=== PATIENT | female | born 1945 | race Caucasian/White ===

== ENCOUNTER → 2021-02-20 11:57 | Outpatient (CLI) | payer OTHER, SELFPAY ==
--- NOTE | ~2021-02-20 | CT_ITS ---
EXAMINATION:CT lung screening DATE: 02/20/2021 12:16 INDICATION: Personal history of tobacco dependence. Smoker who quit 15 years ago with 40 pack year hi story. TECHNIQUE: Computed tomography (CT) of the chest was performed without intravenous contrast. Automate d exposure control and iterative reconstruction technique were employed. The dose-length product (DLP ) was 83.85 mGy-cm. COMPARISON: None. FINDINGS: There is mild scarring at the lung apices. A calcified left lung nodule and calcified left hilar and mediastinal lymph nodes are consistent with old granulomatous disease. There is mild emphys ramiro. No pleural effusion. The heart size is normal. There are coronary artery calcifications. There a re calcifications of the aortic valve. No pericardial effusion. Calcifications in the spleen are cons istent with old granulomatous disease. There is moderate thoracic spondylosis. There is mild chronic anterior wedging of T11 and T12 vertebral bodies. IMPRESSION: 1. Lung-RADS category 2: Benign appearance or behavior. Continue annual screening with noncontrast lo w-dose chest CT in 12 months. Reviewed, dictated and finalized at location A. IMPRESSION: 1. Lung-RADS category 2: Benign appearance or behavior. Continue annual screeni ng with noncontrast low-dose chest CT in 12 months.
== END ==
PROVIDERS: Visit Provider Internal Medicine
DX: Z12.2 Encounter for screening for malignant neoplasm of respiratory organs (principal); Z87.891 Personal history of nicotine dependence
CPT/HCPCS: 71271